=== PATIENT | male | born 1965 | race Caucasian/White ===

== ENCOUNTER 2020-05-12 12:53 | Outpatient (CLI) | payer BC, SELFPAY ==
--- NOTE | 2020-05-12 | ECG_ITS ---
Measurements Intervals [place] Rate: 87 P: 64 KS: 166 QRS: 23 QRSD: 89 T: 36 QT: 355 QTc: 429 Interpretive Statements SINUS RHYTHM MINIMAL Q WAVES- INFERIOR LEADS BASELINE ARTIFACT- I, II, AVR BORDERLINE ECG Electronically Signed On 05-12-2020 13:40:32 CDT by Lincoln Dowling D.O.
--- NOTE | ~2020-05-12 | XR_ITS ---
XR chest 2V DATE: 05/12/2020 13:42 INDICATION: Preoperative testing. Hypertension. TECHNIQUE: PA and lateral views COMPARISON: 06/07/2018 two-view chest FINDINGS: Normal heart size. No hilar or mediastinal enlargement. Lungs are clear of infiltrate or co nsolidation. No pleural effusion or pulmonary vascular congestion or pneumothorax. Possible hardware of the lumbar spine is artifact at the lowermost aspect of the lateral radiograph. IMPRESSION: No active cardiopulmonary disease Reviewed, dictated and finalized at location A.
[2020-05-12 13:34] LABS: Basophils Absolute Auto 0.1 K/mm3 (0.0-0.1); Basophils Percent Auto 0.6 % (0.2-1.2); Eosinophils Absolute Auto 0.2 K/mm3 (0-0.3); Eosinophils Percent Auto 2.5 % (0-4.4); Hematocrit 51.4 % (42.0-52.0); Hemoglobin 17.7 g/dL (14.0-18.0); Immature Granulocyte Absolute 0.05 K/mm3 (0.00-0.031); Immature Granulocyte Percent A 0.6 % (0-0.5); Lymphocytes Absolute Auto 2.81 K/mm3 (0.9-3.2); Lymphocytes Percent Auto 31.8 % (18.3-44.2); Mean Corpuscular HGB Conc 34.4 g/dl (32-36); Mean Corpuscular Hemoglobin 31.2 pg (26-34); Mean Corpuscular Volume 90.7 fl (80-100); Mean Platelet Volume 11.1 fl (7.4-10.4); Monocytes Absolute Auto 0.6 K/mm3 (0.1-0.6); Monocytes Percent Auto 6.9 % (2.6-8.5); Neutrophils Absolute Auto 5.1 K/mm3 (1.3-6.7); Neutrophils Percent Auto 57.6 % (45.5-73.1); Platelet Count Result 202 k/mm3 (150-375); Red Blood Count 5.67 M/mm3 (4.6-6.20); Red Cell Distribution Width 12.6 % (11.5-14.5); White Blood Count 8.9 K/mm3 (4.5-10.0)
[2020-05-12 13:47] LABS: Alanine Aminotransferase 72 U/L (4-50); Albumin Level 4.4 g/dL (3.5-5.1); Alkaline Phosphatase 70 U/L (38-126); Anion Gap 9 mmol/L (8-16); Aspartate Amino Transferase 38 U/L (17-59); Bilirubin,Total 1.1 mg/dL (0.2-1.3); Blood Urea Nitrogen 19 mg/dL (9-20); Calcium 9.2 mg/dL (8.4-10.2); Carbon Dioxide 30 mmol/L (22-30); Chloride 95 mmol/L (98-107); Cholesterol 177 mg/dL (0-200); Estimated Glomerular Filt Rate > 60; Glucose 102 mg/dL (75-110); HDL Direct 39 mg/dL; Partial Thromboplastin Time 24.7 SECONDS (22.3-36.8); Potassium 3.9 mmol/L (3.4-5.0); Prothrombin Time 12.5 Seconds (11.1-14.7); Sodium 134 mmol/L (137-145); Triglycerides 123 mg/dL (<150)
[2020-05-12 13:58] LABS: LDL Cholesterol Direct 114 mg/dL
[2020-05-17 18:48] LABS: Testosterone Free 670.8 pg/mL (35.0-155.0); Testosterone Total 2600 ng/dL (250-1100)
== END 2020-05-12 12:54 | disposition home or self-care (01) ==
PROVIDERS: PCP Family Medicine Adolescent Medicine; Referring Provider Family Medicine Adolescent Medicine
DX: Z20.818 Contact with and (suspected) exposure to other bacterial communicable diseases (principal); E78.00 Pure hypercholesterolemia, unspecified; E29.1 Testicular hypofunction
CPT/HCPCS: 36415; 71046; 80053; 80061; 84402; 84403; 85025; 85610; 85730; 93005

== ENCOUNTER 2022-10-06 00:26 | Day surgery (SDC) | payer BC, SELFPAY ==
[2022-09-27 08:44] VITALS: BMI 27.4
[2022-10-06 10:17] VITALS: BP 140/76; PULSE 89; RESP 18; TEMP 35.9; O2SAT 98
[2022-10-06] MEDS: LACTATED RINGERS 1,000 ML 150 ML IV CONT (10:19)
--- NOTE | 2022-10-06 10:32 | PM.HPGS ---
History of Present Illness History of Present Illness Consent: Risks, benefits, and alternatives have been discussed and questions answered. Patient agrees to proceed with procedure. Chief complaint: dysphagia Narrative: German Mailk is a 57 year old male [facility] Past Medical History Medical History (Updated 09/20/22 @ 16:20 by Judy Landeros PA-C) Colon cancer screening Normal colonoscopy 11/19 Repeat 11/29 Obesity Surgical History Surgical History History of lumbar surgery 06/21 History of shoulder surgery left rotator cuff 2012 Family History Family History Mother Lung cancer Father Heart disease Grandparent Heart disease Social History Social History Smoking status: Never smoker Second hand tobacco smoke exposure: No Alcohol intake: current Drinks per week: 1 Substance use: never Substance use type: does not use Gender identity (if verbalized by the patient): Male Sexual Orientation (if Verbalized by the Patient): Straight or Heterosexual Spiritual care concerns: No Agree to blood products: Yes Meds Home Medications and Allergies Home Medications Medication Instructions Recorded Confirmed Type lisinopril 20 1 tablet PO DAILY #90 tabs 11/08/21 10/06/22 Rx mg-hydrochlorothiazide 25 mg tablet finasteride 5 mg tablet 5 mg PO DAILY #90 tabs 11/29/21 10/06/22 Rx syringe with needle 3 mL 22 x 1 #4 ea 12/20/21 09/20/22 Rx 1/2 (BD SafetyGlide Syringe) amitriptyline 25 mg tablet 12.5 mg PO QHS #45 tabs 12/22/21 10/06/22 Rx atorvastatin 40 mg tablet See Rx Instructions .Route 01/13/22 10/06/22 Rx .COMPLEX #90 tabs pantoprazole 40 mg tablet,delayed 40 mg PO BID #180 tabs 08/09/22 10/06/22 Rx release temazepam 30 mg capsule 30 mg PO QHS PRN sleep #90 caps 08/16/22 10/06/22 Rx meloxicam 15 mg tablet 15 mg PO DAILY #90 tabs 08/17/22 10/06/22 Rx cephalexin 500 mg capsule 500 mg PO Q12H #14 caps 08/30/22 10/06/22 Rx cyclobenzaprine 10 mg tablet 10 mg PO DAILY 08/30/22 10/06/22 History testosterone cypionate 200 mg/mL 200 mg IM .every 2 weeks #6 mL 09/12/22 10/06/22 Rx intramuscular oil sildenafil 100 mg tablet (Viagra) See Rx Instructions .Route .COMPLEX 09/27/22 10/06/22 History Allergies Allergy/AdvReac Type Severity Reaction Status Date / Time No Known Allergies Allergy Mild Verified 10/06/22 10:16 Vital Signs Vital Signs - 24 hr 10/06/22 10:17 Temperature 96.7 F L Pulse Rate 89 Respiratory Rate 18 Blood Pressure 140/76 Pulse Oximetry 98 Oxygen Delivery Room Air
--- NOTE | 2022-10-06 10:39 | WPDANESEPPF ---
Anes - Initial Pre Proc Eval Procedure: Operation Date: 10/06/22 11:00 Proposed Procedures p Esophagogastroduodenoscopy - Pavan Goodman MD Date/Time: 10/06/22 10:39 Surgeon: Pavan Goodman MD Pre Op Diagnosis: dysphagia Patient Data Age: 57 Gender: M Height: 1.83 m Weight: 94.4 kg Last Vital Signs Temp 96.7 F L 10/06/22 10:17 Pulse 89 10/06/22 10:17 Resp 18 10/06/22 10:17 BP 140/76 10/06/22 10:17 Pulse Ox 98 10/06/22 10:17 O2 Del Method Room Air 10/06/22 10:17 Allergies Allergy/AdvReac Type Severity Reaction Status Date / Time No Known Allergies Allergy Mild Verified 10/06/22 10:16 Home Medications Medication Instructions Recorded Confirmed Type lisinopril 20 1 tablet PO DAILY #90 tabs 11/08/21 10/06/22 Rx mg-hydrochlorothiazide 25 mg tablet finasteride 5 mg tablet 5 mg PO DAILY #90 tabs 11/29/21 10/06/22 Rx syringe with needle 3 mL 22 x 1 #4 ea 12/20/21 09/20/22 Rx 1/2 (BD SafetyGlide Syringe) amitriptyline 25 mg tablet 12.5 mg PO QHS #45 tabs 12/22/21 10/06/22 Rx atorvastatin 40 mg tablet See Rx Instructions .Route 01/13/22 10/06/22 Rx .COMPLEX #90 tabs pantoprazole 40 mg tablet,delayed 40 mg PO BID #180 tabs 08/09/22 10/06/22 Rx release temazepam 30 mg capsule 30 mg PO QHS PRN sleep #90 caps 08/16/22 10/06/22 Rx meloxicam 15 mg tablet 15 mg PO DAILY #90 tabs 08/17/22 10/06/22 Rx cephalexin 500 mg capsule 500 mg PO Q12H #14 caps 08/30/22 10/06/22 Rx cyclobenzaprine 10 mg tablet 10 mg PO DAILY 08/30/22 10/06/22 History testosterone cypionate 200 mg/mL 200 mg IM .every 2 weeks #6 mL 09/12/22 10/06/22 Rx intramuscular oil sildenafil 100 mg tablet (Viagra) See Rx Instructions .Route .COMPLEX 09/27/22 10/06/22 History Patient hx anesthesia problems: none Family hx anesthesia problems: none Results Review: All pre-operative results and documents have been reviewed as part of the pre-operative evaluation. [facility] Past Medical History Medical History (Updated 09/20/22 @ 16:20 by Judy Landeros PA-C) Colon cancer screening Normal colonoscopy 11/19 Repeat 11/29 Obesity Surgical History Surgical History History of lumbar surgery 06/21 History of shoulder surgery left rotator cuff 2012 Family History Family History Mother Lung cancer Father Heart disease Grandparent Heart disease Social History Social History Smoking status: Never smoker Second hand tobacco smoke exposure: No Alcohol intake: current Drinks per week: 1 Substance use: never Substance use type: does not use Gender identity (if verbalized by the patient): Male Sexual Orientation (if Verbalized by the Patient): Straight or Heterosexual Spiritual care concerns: No Agree to blood products: Yes Anes - Eval Final PreProcedure Day of Procedure 10/06/22 10:39 Patient weight: normal Heart: regular rate and rhythm Lungs: clear to auscultation Airway: Mallampati scale class II Neurological: alert and oriented Last oral intake: >/= 8 hours ASA classification: II Emergent: no Anesthetic plan: proceed Anesthesia type and monitoring: general GIVS and standard monitoring Results Review: All pre-operative results and documents have been reviewed as part of the pre-operative evaluation. Informed Consent: The patient's anesthetic plan and its attendant risks and benefits were discussed with the patient/family/POA. Questions were solicited and answers provided to the satisfaction of the patient/family/POA.
[2022-10-06 11:05] VITALS: BP 116/69; PULSE 98; RESP 19; O2SAT 97
[2022-10-06 11:15] VITALS: BP 110/72; PULSE 91; RESP 19; O2SAT 97
[2022-10-06 11:25] VITALS: BP 139/87; PULSE 87; RESP 24; O2SAT 99
== END 2022-10-06 11:33 | disposition home or self-care (01) ==
PROVIDERS: PCP Family Medicine Adolescent Medicine; Visit Provider Internal Medicine Gastroenterology
PROC: 0DJ08ZZ Inspection of Upper Intestinal Tract, Via Natural or Artificial Opening Endoscopic (ICD-10-PCS; CPT 43235; principal; 2022-10-06 11:00)
DX: R13.10 Dysphagia, unspecified (principal)
CPT/HCPCS: 43450; 43235; J2704; J7120

== ENCOUNTER 2022-12-21 14:29 | Outpatient (CLI) | payer BC, SELFPAY ==
--- NOTE | ~2022-12-21 | XR_ITS ---
Supine views of the abdomen Clinical history: Hematuria Findings: Bowel gas pattern is nonspecific. No evidence for obstruction or free air. No definite eder l stone identified. Probable calcified pelvic phleboliths. Spinal fixation hardware noted from L3 thr ough L5.. Impression: No definite renal stone identified. Reviewed, dictated and finalized at [facility]. Impression: No definite renal stone identified.
--- NOTE | ~2022-12-21 | CT_ITS ---
EXAMINATION: CT abdomen pelvis wo/w con DATE: 12/21/2022 15:19 INDICATION: Gross hematuria for 3 months TECHNIQUE: Computed tomography (CT) of the abdomen and pelvis was performed without and subsequently with 130 CC Omnipaque 350 intravenous contrast. Automated exposure control and iterative reconstructi on technique were employed. Exam dose: 1585.99 mGy-cm total exam DLP. COMPARISON: 12/21/2022 KUB FINDINGS: Lung bases are clear of infiltrate or consolidation. Normal heart size. No pericardial or pleural eff usion. The liver, gallbladder, bile ducts, pancreas, pancreatic duct and spleen appear normal. Normal morphology of the adrenal glands. No renal mass lesion. No intraluminal filling defect of the renal collecting structures or ureters is detected. No hydroureteronephrosis. There is a prominent filling defect of the urinary bladder posterolaterally on the left just medial t o the ureterovesical junction, suggesting urothelial malignancy. Urgent urological consultation is re commended. Normal caliber of the abdominal aorta. No intraperitoneal or retroperitoneal or pelvic mass lesion or adenopathy or ascites. Normal appendix. No bowel obstruction. There is a prominent amount of fecal material within the colon. Status post posterior and interbody spinal fusion at L3-5 Included skeletal structures are otherwise unremarkable. IMPRESSION: Approximately 16 x 30 mm posterolateral urinary bladder mass near left ureterovesical ju nction, strongly suggestive of urothelial malignancy Reviewed, dictated and finalized at Location [facility]. Reviewed, dictated and finalized at location B. IMPRESSION: Approximately 16 x 30 mm posterolateral urinary bladder mass near left ureterovesical junction, strongly suggestive of urothelial malignancy
[2022-12-21 15:01] LABS: Estimated Glomerular Filt Rate > 60
== END 2022-12-21 14:30 | disposition home or self-care (01) ==
PROVIDERS: PCP Family Medicine Adolescent Medicine; Visit Provider Urology
DX: N32.9 Bladder disorder, unspecified (principal); R31.0 Gross hematuria
CPT/HCPCS: 74018; 74178; Q9967

== ENCOUNTER 2023-01-02 10:07 | Outpatient (CLI) | payer BC, SELFPAY ==
--- NOTE | 2023-01-02 10:25 | ECG_ITS ---
Measurements Intervals [place] Rate: P: [place]: QRS: QRSD: T: QT: QTc: Interpretive Statements SINUS TACHYCARDIA NO PRIOR ECG AVAILABLE FOR COMPARISON Electronically Signed On 01-03-2023 14:51:02 CDT by Greer Neely M.D.
[2023-01-02 13:23] LABS: Anion Gap 7 mmol/L (8-16); Blood Urea Nitrogen 16 mg/dL (9-20); Calcium 8.7 mg/dL (8.4-10.2); Carbon Dioxide 33 mmol/L (22-30); Chloride 99 mmol/L (98-107); Estimated Glomerular Filt Rate > 60; Glucose 125 mg/dL (65-110); Potassium 3.4 mmol/L (3.4-5.0); Sodium 139 mmol/L (137-145)
== END 2023-01-02 10:08 | disposition home or self-care (01) ==
PROVIDERS: Anesthesiology; PCP Family Medicine Adolescent Medicine; Visit Provider Urology
DX: Z01.812 Encounter for preprocedural laboratory examination (principal); Z01.810 Encounter for preprocedural cardiovascular examination; I10 Essential (primary) hypertension; R00.0 Tachycardia, unspecified
CPT/HCPCS: 36415; 80048; 93005

== ENCOUNTER 2023-01-06 00:31 | Day surgery (SDC) | payer BC, SELFPAY ==
[2023-01-02 09:12] VITALS: BMI 27.6
--- NOTE | 2023-01-02 09:16 | PC.NURSE ---
Report to the Outpatient Waiting Room, entrance under the green pavilion located off [facility], at time _1200_ on date _01-06-2023_. Planned Procedure Time: _2pm_. Time changes happen often and if your time is changed the preop area will call you the afternoon before. - You and your visitor will be asked to self-screen and do not enter if you have any COVID symptoms. - Only one visitor is requested with a max of two and NO children visitors are allowed at this time. - The patient visitor may be requested to leave or wait in car when not with patient due to distancing restrictions. - A mask is optional within the hospital at this time. Patients may have clear liquids (water, carbonated beverages, clear teas, apple juice) until 3 hours prior to surgery with a maximum of 20 ounces. - No food from midnight until time of surgery Take the following medications with a SIP of water the morning of surgery: __None DO NOT STOP ANY OF YOUR OTHER PRESCRIPTION MEDICATIONS PRIOR TO SURGERY ?EXCEPT THE FOLLOWING Medications to discontinue per physician None Date to take last dose Please no make-up, nail nepali, hairspray, perfume, deodorant, or body powder the day of surgery. No jewelry (including any body piercings) or valuables the day of surgery, leave them at home. Please take a shower or bath the night before, or the morning of, surgery with an antibacterial soap. Wear comfortable, loose fitting clothing. - Jewelry must be removed prior to entering the operating room. Rings and piercings that are not removed may be cut off. - The hospital will not accept responsibility for valuables. - Please leave all valuables, including medications, at home the day of surgery. If you are going home after surgery, a licensed ross carrier driver must drive you home. - NO public transportation without another adult if you receive anesthesia. - We recommend that an adult stay with you for 24 hours following discharge. - We also recommend that you do not drive, make important decision, drink alcoholic beverages, or take any drugs that were not prescribed by your health care provider for at least 24 hours after your discharge time. Follow any additional instructions given to you from your surgeon. If you or anyone in your household have experienced Covid symptoms in the past week, please notify your surgeon or the nurse liaison at the phone number below for possible testing. Telephone instructions given to _Patient___and asked if any additional questions and then verbalized understanding. Patient advised to call surgeon office or pre surgery nurse liaison [phone] if any additional questions.
[2023-01-06] VITALS (7 sets, daily range): BP systolic 128–146; BP diastolic 75–96; PULSE 91–102; RESP 12–17; TEMP 36.3–36.8; O2SAT 96–100
--- NOTE | 2023-01-06 05:36 | WPDHPUPDATE1 ---
History and Physical Update Update Date/Time: 01/06/23 05:36 History and Physical has been reviewed, including an updated exam of the patient. There are NO changes in the patient's condition. Risks, benefits, and alternatives have been discussed and questions answered. Patient agrees to proceed with procedure.
--- NOTE | 2023-01-06 09:52 | WPDANESEPPF ---
Anes - Initial Pre Proc Eval Procedure: Operation Date: 01/06/23 14:00 Proposed Procedures p Trans Urethral Resection Bladder Tumor with Gemcitabine Instillation - Dashawn Mcguire MD Date/Time: 01/06/23 09:52 Surgeon: Dashawn Mcguire MD Pre Op Diagnosis: BPH with obstruction, gross hematuria Patient Data Age: 57 Gender: M Height: 1.83 m Weight: 92.3 kg Allergies Allergy/AdvReac Type Severity Reaction Status Date / Time No Known Allergies Allergy Mild Verified 01/02/23 09:09 Home Medications Medication Instructions Recorded Confirmed Type cephalexin 500 mg capsule 500 mg PO Q12H #14 caps 08/30/22 01/02/23 Rx sildenafil 100 mg tablet (Viagra) See Rx Instructions .Route .COMPLEX 09/27/22 01/02/23 History temazepam 30 mg capsule 30 mg PO QHS PRN sleep #90 caps 10/19/22 01/02/23 Rx atorvastatin 40 mg tablet See Rx Instructions .Route 10/20/22 01/02/23 Rx .COMPLEX #90 tabs cyclobenzaprine 10 mg tablet 10 mg PO DAILY #90 tabs 10/20/22 01/02/23 Rx finasteride 5 mg tablet 5 mg PO DAILY #90 tabs 10/20/22 01/02/23 Rx lisinopril 20 1 tablet PO DAILY #90 tabs 10/20/22 01/02/23 Rx mg-hydrochlorothiazide 25 mg tablet meloxicam 15 mg tablet 15 mg PO DAILY #90 tabs 10/20/22 01/02/23 Rx pantoprazole 40 mg tablet,delayed 40 mg PO BID #180 tabs 10/20/22 01/02/23 Rx release syringe with needle 3 mL 22 x 1 #4 ea 12/20/22 Rx 1/2 (BD SafetyGlide Syringe) testosterone cypionate 200 mg/mL 200 mg IM .every 2 weeks #6 mL 12/20/22 01/02/23 Rx intramuscular oil amitriptyline 25 mg tablet 12.5 mg PO QHS PRN Insomnia 01/02/23 01/02/23 History ECG: Date of Service: 01/02/23 Procedure(s): CA 12 lead EKG Accession Number(s): [id number] cc: ~ ? Measurements Intervals? [place]? Rate:? P:? [place]:? QRS:? QRSD:? T:? QT:? QTc: ? Interpretive Statements SINUS TACHYCARDIA NO PRIOR ECG AVAILABLE FOR COMPARISON Electronically Signed On 01-03-2023 14:51:02 CDT by Greer Neely M.D. Patient hx anesthesia problems: none Family hx anesthesia problems: none Results Review: All pre-operative results and documents have been reviewed as part of the pre-operative evaluation. [facility] Past Medical History Medical History (Updated 01/06/23 @ 10:04 by Sage Hicks MD) Colon cancer screening Essential (primary) hypertension Normal colonoscopy 11/19 Repeat 11/29 Obesity Pure hypercholesterolemia, unspecified Surgical History Surgical History History of lumbar surgery 06/21 History of shoulder surgery left rotator cuff 2012 Family History Family History Mother Lung cancer Father Heart disease Grandparent Heart disease Social History Social History Smoking status: Never smoker Second hand tobacco smoke exposure: No Alcohol intake: current Drinks per week: 5 Substance use: never Substance use type: does not use Living arrangements: with family Occupation/Education: occupation Gender identity (if verbalized by the patient): Male Sexual Orientation (if Verbalized by the Patient): Straight or Heterosexual Spiritual care concerns: No Agree to blood products: Yes Anes - Eval Final PreProcedure Day of Procedure 01/06/23 09:52 Patient weight: normal Heart: regular rate and rhythm Lungs: clear to auscultation Airway: Mallampati scale class II Neurological: alert and oriented Last oral intake: >/= 8 hours ASA classification: III Emergent: no Anesthetic plan: proceed Anesthesia type and monitoring: g
[2023-01-06] MEDS: LACTATED RINGERS 1,000 ML 30 ML IV CONT (13:10)
[2023-01-06] MEDS: ceFAZolin 2 GM/D5W 50 ML 2 GM/50 ML BAG IVPB (14:06)
[2023-01-06] MEDS: LIDOCAINE HCL 2% GEL UROJET 10 ML PKG MUCOUS MEM (14:18)
[2023-01-06] MEDS: SODIUM CHLORIDE 0.9% IV 23.7 ML, GEMCITABINE HCL 1,000 MG BLADDER ×2 (14:49→14:50)
[2023-01-06] MEDS: fentaNYL CITRATE INJ (*CRX) 100 MCG/2 ML VIAL 25 MCG IV PUSH ×2 (14:55→14:58)
--- NOTE | 2023-01-06 14:57 | W.PM.PROC2 ---
Procedure Note - Detailed Date of Procedure 01/06/23 Pre-op Diagnosis Bladder tumor Post-op Diagnosis Same Procedure Performed TURBT ( medium, 3.5-4 cm) Surgeon Dashawn Mcguire MD Anesthesia General Description of Procedure The patient was brought to the operative suite where he is prepped and draped in a routine sterile fashion while in the dorsal lithotomy position. This is done after the uneventful administration of systemic sedation. 2% Xylocaine jelly is introduced intraurethrally and allowed to stand for an appropriate period of time. A 24F resectoscope sheath was placed in the bladder and the bladder is circumferentially inspected carefully. There is very minimal prostatic hyperplasia with only early obstruction of the prostatic urethra. 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 It appears to be somewhat pedunculated and measures 3.5-4 cm.. This area is resected in its entirety with an attempt made to include detrusor muscle for pathological evaluation of invasion. The base and periphery of this resected side is cauterized with a loop electrode. Throughout this procedure I was able to identify and avoid injury to the left ureteral orifice. The remainder of the bladder mucosa was perfectly normal without suspicious hyperemia or marly neoplasm. The urothelium of the prostatic urethra was likewise normal.The bladder is emptied and the resectoscope was removed. An 18 F catheter was placed to straight drainage with clear efflux. The patient is taken to the recovery room having tolerated this procedure well. Pathology None sent Complications No immediate complications Condition Stable Disposition PACU
--- NOTE | 2023-01-06 15:06 | W.PM.PROC2 ---
Procedure Note - Detailed Date of Procedure 01/06/23 Pre-op Diagnosis Bladder tumor Post-op Diagnosis Same Procedure Performed Gemcitabine installation Surgeon Dashawn Mcguire MD Anesthesia General and None Description of Procedure With the patient in the supine position, a 16F Lee catheter is placed using sterile technique. Using a protective facemask, gown and double layer of gloves Gemcitabine 2gm in 100cc saline is administered through the catheter/into the bladder. The catheter is then plugged. Patient was instructed to lie supine x20min, then to roll both the left and right x20 min. each. Total dwell time will be 60 min., after which the bladder will be drained and catheter removed. Drains No Packing No Pathology None sent Complications No immediate complications
== END 2023-01-06 16:44 | disposition home or self-care (01) ==
PROVIDERS: PCP Family Medicine Adolescent Medicine; Visit Provider Urology
PROC: 0TBB8ZZ Excision of Bladder, Via Natural or Artificial Opening Endoscopic (ICD-10-PCS; CPT 52235; principal; 2023-01-06 14:00)
DX: C67.2 Malignant neoplasm of lateral wall of bladder (principal); I10 Essential (primary) hypertension; E78.00 Pure hypercholesterolemia, unspecified
CPT/HCPCS: 52235; 51720; 36415; 80048; 88305; 93005; J0690; J1100; J2250; J2405; J2704; J3010; J7120; J9201

== ENCOUNTER → 2023-07-29 08:37 | Outpatient (CLI) | payer BC, SELFPAY ==
--- NOTE | ~2023-07-29 | MR_ITS ---
EXAMINATION: MR shoulder RT wo con DATE: 07/29/2023 09:22 INDICATION: Right shoulder pain and limited range of motion TECHNIQUE: Magnetic resonance imaging (MRI) of the right shoulder was performed without intravenous c ontrast. Sequences included axial PD-weighted FS FSE, coronal oblique PD-weighted FS FSE, coronal obl ique T2-weighted FS FSE, sagittal PD-weighted FS FSE, and sagittal T1-weighted SE. COMPARISON: None. FINDINGS: Coracoacromial arch: The acromion undersurface is curved in morphology (type II). The coracoacromial ligament is normal. M ild acromioclavicular osteoarthritis. Rotator cuff: Mild supraspinatus and infraspinatus tendinopathy with bursal sided tear extending 11 mm AP along the superior facet footplate of the greater tuberosity and involving up to two thirds of the tendon thic kness. There is approximately 7 mm medial retraction of the bursal side of the tear margin. The teres minor tendon is normal. Mild subscapularis tendinopathy without tear. Normal rotator cuff muscle bul k and signal. Biceps tendon, glenoid labrum and glenohumeral cartilage: Long head of the biceps tendon is normal. Mild amorphous increased signal and irregular margins along the 10:30-11:30 position of the posterosuperior glenoid labrum consistent with labral degeneration. The inferior labrum is small with prominent increased signal along the interface of the bone and norm al thickness overlying cartilage as well as the base of the labrum at the 5:00-6:00 position of the g lenoid consistent with additional chronic degeneration and associated chondromalacia. Glenohumeral c artilage appears otherwise normal. Fluid: Physiologic amount of fluid in the glenohumeral joint and biceps tendon sheath. No loose osteochondr al bodies. Small amount of fluid in the subacromial/subdeltoid bursa consistent with mild bursitis. Bones: Normal marrow signal with no fracture or pathologic marrow replacing process. IMPRESSION: 1. Small high-grade partial thickness bursal sided tear along the superior facet footplate of the sup raspinatus tendon. 2. Small regions of degeneration along the posterosuperior and inferior glenoid labrum. 3. Mild acromion clavicular osteoarthritis and mild underlying subacromial/subdeltoid bursitis. Reviewed, dictated and finalized at location A. IMPRESSION: 1. Small high-grade partial thickness bursal sided tear along the superior face t footplate of the supraspinatus tendon. 2. Small regions of degeneration along the posterosuperior and inferior glenoid labrum. 3. Mild acromion clavicular osteoarthritis and mild underlying subacromial/subd eltoid bursitis.
== END ==
PROVIDERS: PCP Orthopaedic Surgery; Visit Provider Orthopaedic Surgery
DX: M19.011 Primary osteoarthritis, right shoulder (principal); M75.51 Bursitis of right shoulder; M75.111 Incomplete rotator cuff tear or rupture of right shoulder, not specified as traumatic; M24.111 Other articular cartilage disorders, right shoulder
CPT/HCPCS: 73221

== ENCOUNTER 2023-09-18 15:25 | Outpatient (CLI) | payer BC, SELFPAY ==
[2023-09-18 16:24] LABS: Anion Gap 9 mmol/L (8-16); Blood Urea Nitrogen 23 mg/dL (9-20); Calcium 9.8 mg/dL (8.4-10.2); Carbon Dioxide 30 mmol/L (22-30); Chloride 98 mmol/L (98-107); Estimated Glomerular Filt Rate > 60; Glucose 110 mg/dL (65-110); Potassium 3.9 mmol/L (3.4-5.0); Sodium 137 mmol/L (137-145)
== END 2023-09-18 15:26 | disposition home or self-care (01) ==
LOC: ANHSURGERY 15:28
PROVIDERS: Anesthesiology; PCP Family Medicine Adolescent Medicine; Visit Provider Orthopaedic Surgery
DX: Z01.818 Encounter for other preprocedural examination (principal); Z79.899 Other long term (current) drug therapy
CPT/HCPCS: 36415; 80048; 87081; 87147; 87181; 87186

== ENCOUNTER 2023-09-21 00:18 | Day surgery (SDC) | payer BC, SELFPAY ==
[2023-09-18 14:59] VITALS: BMI 27.1
--- NOTE | 2023-09-18 15:03 | PC.NURSE ---
Report to the Outpatient Waiting Room, entrance under the green pavilion located off [facility], at time 6:00 on date 09/21/23. Planned Procedure Time: 7:30. Time changes happen often and if your time is changed the preop area will call you the afternoon before. - You and your visitor will be asked to self-screen and do not enter if you have any COVID symptoms. - A mask is optional within the hospital at this time. Patients may have clear liquids (water, carbonated beverages, clear teas, apple juice) until 3 hours prior to surgery (4:30) with a maximum of 20 ounces. - No food from midnight until time of surgery Take the following medications with a SIP of water the morning of surgery: NONE DO NOT STOP ANY OF YOUR OTHER PRESCRIPTION MEDICATIONS PRIOR TO SURGERY ?EXCEPT THE FOLLOWING Medications to discontinue per physician: MELOXICAM Date to take last dose: ALREADY STOPPED Please no make-up, nail japanese, hairspray, perfume, deodorant, or body powder the day of surgery. No jewelry (including any body piercings) or valuables the day of surgery, leave them at home. Please take a shower or bath the night before, or the morning of, surgery with an antibacterial soap. Wear comfortable, loose fitting clothing. - Jewelry must be removed prior to entering the operating room. Rings and piercings that are not removed may be cut off. - The hospital will not accept responsibility for valuables. - Please leave all valuables, including medications, at home the day of surgery. If you are going home after surgery, a licensed special needs bus driver must drive you home. - NO public transportation without another adult if you receive anesthesia. - We recommend that an adult stay with you for 24 hours following discharge. - We also recommend that you do not drive, make important decision, drink alcoholic beverages, or take any drugs that were not prescribed by your health care provider for at least 24 hours after your discharge time. Follow any additional instructions given to you from your surgeon. If you or anyone in your household have experienced Covid symptoms in the past week, please notify your surgeon or the nurse liaison at the phone number below for possible testing. Telephone instructions given to PT - [facility] and asked if any additional questions and then verbalized understanding. Patient advised to call surgeon office or pre surgery nurse liaison [phone] if any additional questions.
--- NOTE | 2023-09-20 12:08 | PM.IMHP ---
H&P: HPI History of Present Illness Date/Time: 09/20/23 12:08 Chief Complaint: Rotator cuff tear right shoulder Narrative: 58-year-old male patient of Dr. Ayon who presents today for arthroscopy of his right shoulder with mini open rotator cuff repair. He has been having symptoms in the shoulder since early this year. He was rehabbing a house and doing a lot of strenuous work with his arms. He developed progressively worsening pain in the shoulder. He has had a recent MRI scan which demonstrated a medium size high-grade partial-thickness tear in the rotator cuff tendon. He has been on anti-inflammatories and resting. He has not had improvement of his symptoms. Did have his left rotator cuff repaired approximately 10 years ago and continues do well with the left arm. He feels this point he would rather proceed with surgery rather than continue nonsurgical treatment. Review of Systems Review of Systems: All systems reviewed & are unremarkable except as noted in HPI and below PMFSH Past Medical History Medical History (Updated 07/11/23 @ 16:44 by Jc Meyers MD) Colon cancer screening Essential (primary) hypertension Normal colonoscopy 11/19 Repeat 11/29 Obesity Pure hypercholesterolemia, unspecified Surgical History Surgical History History of lumbar surgery 06/21 History of shoulder surgery left rotator cuff 2012 Family History Family History Mother Lung cancer Father Heart disease Grandparent Heart disease Social History Social History Smoking status: Never smoker Second hand tobacco smoke exposure: No Alcohol intake: current Drinks per week: 5 Substance use: never Substance use type: does not use Living arrangements: with family Occupation/Education: occupation Gender identity (if verbalized by the patient): Male Sexual Orientation (if Verbalized by the Patient): Straight or Heterosexual Spiritual care concerns: No Agree to blood products: Yes Meds Home Medications and Allergies Home Medications Medication Instructions Recorded Confirmed Type sildenafil 100 mg tablet (Viagra) See Rx Instructions .Route .COMPLEX 09/27/22 09/18/23 History cyclobenzaprine 10 mg tablet 10 mg PO DAILY #90 tabs 10/20/22 09/18/23 Rx syringe with needle 3 mL 22 x 1 #4 ea 12/20/22 07/11/23 Rx 1/2 (BD SafetyGlide Syringe) finasteride 5 mg tablet 5 mg PO DAILY #90 tabs 04/05/23 09/18/23 Rx amitriptyline 25 mg tablet 12.5 mg PO QHS PRN Insomnia #45 04/24/23 09/18/23 Rx tabs pantoprazole 40 mg tablet,delayed 40 mg PO BID #180 tabs 06/12/23 09/18/23 Rx release lisinopril 20 1 tablet PO DAILY #90 tabs 07/07/23 09/18/23 Rx mg-hydrochlorothiazide 25 mg tablet meloxicam 15 mg tablet 15 mg PO DAILY #90 tabs 07/07/23 09/18/23 Rx temazepam 30 mg capsule 30 mg PO QHS PRN sleep #90 caps 07/09/23 09/18/23 Rx atorvastatin 40 mg tablet 40 mg PO DAILY #90 tabs 08/03/23 09/18/23 Rx testosterone cypionate 200 mg/mL 200 mg IM .every 3 weeks #1 mL 09/05/23 09/18/23 Rx intramuscular oil Allergies Allergy/AdvReac Type Severity Reaction Status Date / Time No Known Allergies Allergy Mild Verified 09/18/23 14:56 Exam Narrative: 58-year-old male he is alert pleasant. He is 6 ft tall and 205 lb. He has thick deltoids. He has normal sensation right upper extremity. Active assisted elevation 155 which causes mild discomfort external rotation is to 65 and internal rotation is to L5. He has moderate weakness with abduction as well as external rotation strength testing. Belly press is normal. He has byus-nu-syafjbwn tenderness over the anterior supraspinatus tendon insertion. Biceps muscle belly has normal contour. 2+ radial pulse in the wrist. Neck range of motion causes no discomfort. Resp: Aus
--- NOTE | 2023-09-20 14:03 | WPDANESEPPF ---
Anes - Initial Pre Proc Eval Procedure: Operation Date: 09/21/23 07:30 Proposed Procedures p Right Shoulder Arthroscopy, Mini Open Rotator Cuff Repair, Proceed as Indicated - Fausto Coy MD Date/Time: 09/20/23 14:03 Surgeon: Fausto Coy MD Pre Op Diagnosis: right shoulder rot cuff tear Patient Data Age: 58 Gender: M Height: 1.83 m Weight: 90.75 kg Allergies Allergy/AdvReac Type Severity Reaction Status Date / Time No Known Allergies Allergy Mild Verified 09/18/23 14:56 Home Medications Medication Instructions Recorded Confirmed Type sildenafil 100 mg tablet (Viagra) See Rx Instructions .Route .COMPLEX 09/27/22 09/18/23 History cyclobenzaprine 10 mg tablet 10 mg PO DAILY #90 tabs 10/20/22 09/18/23 Rx syringe with needle 3 mL 22 x 1 #4 ea 12/20/22 07/11/23 Rx 1/2 (BD SafetyGlide Syringe) finasteride 5 mg tablet 5 mg PO DAILY #90 tabs 04/05/23 09/18/23 Rx amitriptyline 25 mg tablet 12.5 mg PO QHS PRN Insomnia #45 04/24/23 09/18/23 Rx tabs pantoprazole 40 mg tablet,delayed 40 mg PO BID #180 tabs 06/12/23 09/18/23 Rx release lisinopril 20 1 tablet PO DAILY #90 tabs 07/07/23 09/18/23 Rx mg-hydrochlorothiazide 25 mg tablet meloxicam 15 mg tablet 15 mg PO DAILY #90 tabs 07/07/23 09/18/23 Rx temazepam 30 mg capsule 30 mg PO QHS PRN sleep #90 caps 07/09/23 09/18/23 Rx atorvastatin 40 mg tablet 40 mg PO DAILY #90 tabs 08/03/23 09/18/23 Rx testosterone cypionate 200 mg/mL 200 mg IM .every 3 weeks #1 mL 09/05/23 09/18/23 Rx intramuscular oil Patient hx anesthesia problems: none Family hx anesthesia problems: none Results Review: All pre-operative results and documents have been reviewed as part of the pre-operative evaluation. [facility] Past Medical History Medical History (Updated 09/20/23 @ 14:04 by Torey J. Luchtefeld, DO) Colon cancer screening Essential (primary) hypertension Normal colonoscopy 11/19 Repeat 11/29 Obesity Obstructive sleep apnea (adult) (pediatric) CPAP Pure hypercholesterolemia, unspecified Surgical History Surgical History History of lumbar surgery 06/21 History of shoulder surgery left rotator cuff 2012 Family History Family History Mother Lung cancer Father Heart disease Grandparent Heart disease Social History Social History Smoking status: Never smoker Second hand tobacco smoke exposure: No Alcohol intake: current Drinks per week: 5 Substance use: never Substance use type: does not use Living arrangements: with family Occupation/Education: occupation Gender identity (if verbalized by the patient): Male Sexual Orientation (if Verbalized by the Patient): Straight or Heterosexual Spiritual care concerns: No Agree to blood products: Yes Anes - Eval Final PreProcedure Day of Procedure 09/20/23 14:03 Patient weight: obese Heart: regular rate and rhythm Lungs: clear to auscultation Airway: Mallampati scale class III Neurological: alert and oriented Last oral intake: >/= 8 hours ASA classification: III Emergent: no Anesthetic plan: proceed Anesthesia type and monitoring: general ETT and standard monitoring Results Review: All pre-operative results and documents have been reviewed as part of the pre-operative evaluation. Informed Consent: The patient's anesthetic plan and its attendant risks and benefits were discussed with the patient/family/POA. Questions were solicited and answers provided to the satisfaction of the patient/family/POA.
[2023-09-21] VITALS (7 sets, daily range): BP systolic 111–146; BP diastolic 67–88; PULSE 84–110; RESP 13–18; TEMP 36.2–36.3; O2SAT 98–99
[2023-09-21] MEDS: KETOROLAC 15 MG/ML VIAL (*BKC) IV PUSH (06:50)
[2023-09-21] MEDS: VANCOMYCIN 1,250 MG/NS 250 ML BAG 166.67 MG IVPB (06:50)
[2023-09-21] MEDS: ACETAMINOPHEN 500 MG TABLET 1000 MG PO (06:50)
[2023-09-21] MEDS: LACTATED RINGERS 1,000 ML 30 ML IV CONT ×2 (06:50→10:18)
--- NOTE | 2023-09-21 07:10 | WPDHPUPDATE1 ---
History and Physical Update Update Date/Time: 09/21/23 07:10 History and Physical has been reviewed, including an updated exam of the patient. There are NO changes in the patient's condition. Risks, benefits, and alternatives have been discussed and questions answered. Patient agrees to proceed with procedure.
--- NOTE | 2023-09-21 07:12 | WPDANESPNB ---
Anes - Peripheral Nerve Block Date/Time: 09/21/23 07:12 I have discussed with the patient/family/POA the placement of a peripheral nerve block for post-operative pain management, including associated risks, benefits, complications, and side effects. Alternative methods of post-operative analgesia were detailed. Questions were solicited and answers provided to the satisfaction of the patient/family/POA. Time-Out: A pre-procedural Time-Out was completed immediately before starting the procedure and confirmed: Patient Identification, Site, Procedure, Patient Position and the Availability of Requisite Equipment. Clinical Indications: Acute post-operative pain management requested by the operative surgeon. Nerve Block Insertion Note Anes-nerve block: interscalene right Patient position: supine Skin prep: chlorhexidine Needle: 22 gauge, stimulating, insulated echogenic needle. Needle length: 50 mm Technique: ultrasound Injectate: bupivacaine 0.5% with epi 5 mcg/ml (20cc- no epi) Observations: tolerated well Complications: none Procedure start time:: 716 Procedure end time:: 719
[2023-09-21] MEDS: ceFAZolin 2 GM/D5W 50 ML 2 GM/50 ML BAG IVPB (07:34)
[2023-09-21] MEDS: ceFAZolin SODIUM 1 GM VIAL (08:20)
[2023-09-21] MEDS: ceFAZolin SODIUM 1 GM VIAL IV PUSH (09:56)
--- NOTE | 2023-09-21 10:24 | PM.OP ---
Procedure Note - Brief Procedure Note - Brief Date of procedure: 09/21/23 right shoulder rot cuff tear Procedure performed: A 58-year-old male who underwent right rotator cuff repair on 09/21. I was involved in the procedure including positioning the patient on the OR table and 1st assisting through the time of surgery. Total time spent was 2 1/2 hours Surgeon: SANDY Lora
--- NOTE | 2023-09-21 10:33 | W.PM.PROC2 ---
Procedure Note - Detailed Date of Procedure 09/21/23 Pre-op Diagnosis right shoulder rot cuff tear Post-op Diagnosis Same Procedure Performed Arthroscopic acromioplasty, limited debridement labral tearing, mini open rotator cuff repair right shoulder Surgeon Fausto Coy MD Thread Machine Operator James or Anesthesia General and Regional Description of Procedure Patient was brought to the operating room and general anesthesia was administered. In the preop holding area he received an interscalene block on the right side for postoperative analgesia. He was placed on the operating table positioned in the beach chair position the head secured in neutral alignment the right shoulder prepped draped usual fashion covering all of the skin with Ioban except top portion. He received weight based vancomycin 2 g of Ancef preoperatively. Standard posterior portal was placed. The articular surfaces looked normal. There was degenerative tearing of the anterior superior labrum. The long head of the biceps looked perfect. Anterior superior portal was placed and the long had retracted into the joint and the portion in the bicipital groove looked normal. Subscapularis tendon and the pulleys on either side of the long head of the biceps looked normal. There was evidence of through and through tearing of the supraspinatus tendon as viewed from the joint. The shaver is used to gently debride the anterior superior degenerative tearing of the anterior superior labrum. The arthroscope was placed into the subacromial space. The tear of the supraspinatus tendon upper infraspinatus was noted. CA ligament was debrided with alternating arthroscopic cautery device and motorized shaver exposing the anterior undersurface of the acromion which was smoothed removing 1 or 2 mm of bone to create a flat smooth surface further smoothed with a rasp. Outflow portal had been artery placed. Mid lateral portal used in this process. With the arthroscopic instruments removed the remaining uncovered skin was covered with Ioban and we changed outer gloves. A 1-3/4 inch longitudinal incision was made over the anterior superior shoulder starting on the superior surface of the anterior acromion over the tendinous raphe between middle and anterior heads of the deltoid. A 4 cm split in the deltoid was made through the tendonous raphe. We released approximately 5 mm of deltoid from anterior acromion for improved exposure. The simin Brand self-retaining retractor was placed exposing the rotator cuff tear. There was full-thickness tearing of the entire with supraspinatus which was associated with no retained tissue on the greater tuberosity except for the anterior cable where there was about 4 mm cuff of degenerative tendinous tissue still attached to the anterior most aspect of the supraspinatus footprint. This was debrided. The infraspinatus showed high-grade partial-thickness tearing of the bursal surface still attached less than 1 mm thick this was debrided to affect repair. The supraspinatus and infraspinatus footprints of the greater tuberosity were prepared carefully cleaning any residual soft tissue off the greater tuberosity and making multiple bur holes adjacent the articular surface for passage of sutures. Bursal adhesions over the infraspinatus and supraspinatus muscles were released with Hunt elevator. The tendon was quite mobile. We repaired the tendon to bone using 1.2 mm Ivis suture tapes and 2. Ethibond placed in a simple fashion through the bone tunnel openings adjacent to the articular surface starting with a central stitch to make sure we were properly centered and additional stitches placed anterior and posterior placed in a converging fashion to give a spherical contour repair. Total of 8 sutures were used. Arm was taken through full range of motion there was no undue tension on the repair. The wound was thoroughly irrigated with Ancef solution. Arthroscope was placed into the shoulder j
== END 2023-09-21 11:55 | disposition home or self-care (01) ==
PROVIDERS: PCP Family Medicine Adolescent Medicine; Visit Provider Orthopaedic Surgery
PROC: (CPT 29805; principal; 2023-09-21 07:30)
DX: S46.011A Strain of muscle(s) and tendon(s) of the rotator cuff of right shoulder, initial encounter (principal); X50.0XXA Overexertion from strenuous movement or load, initial encounter; G89.18 Other acute postprocedural pain; I10 Essential (primary) hypertension; E78.00 Pure hypercholesterolemia, unspecified; E66.9 Obesity, unspecified; Z68.29 Body mass index [BMI] 29.0-29.9, adult; Z79.890 Hormone replacement therapy
CPT/HCPCS: 64415; 23410; 36415; 80048; 87081; 87147; 87181; 87186; A9270; J0690; J1100; J1170; J1885; J2250; J2371; J2405; J3010; J3370; J7030; J7120